=== PATIENT | female | born 1950 | race Caucasian/White ===

== ENCOUNTER 2017-03-25 23:27 | Emergency (ER) | payer MEDICARE ==
[2017-03-25] MEDS ORDERED: CLOPIDOGREL BISULFATE 300 MG TABLET PO ONE (23:43)
[2017-03-25] MEDS ORDERED: HEPARIN NA (PORCINE) 5,000 UNITS/ML 1ML VIAL IVPUSH PRN (23:45)
[2017-03-25] MEDS ORDERED: ASPIRIN 81 MG CHEWABLE TABLETS ONE (23:51)
[2017-03-25 23:52] VITALS: BMI 32.4
[2017-03-25] MEDS ORDERED: CLOPIDOGREL BISULFATE 300 MG TABLET ONE (23:52)
[2017-03-25] MEDS ORDERED: HEPARIN NA (PORCINE) 5,000 UNITS/ML 1ML VIAL ONE (23:52)
[2017-03-26] MEDS ORDERED: morphine CARPU-JECT 2 MG/1 ML DISP.SYRIN IVPUSH ONE ×2 (00:06→00:38)
[2017-03-26] MEDS ORDERED: morphine CARPU-JECT 2 MG/1 ML DISP.SYRIN ONE ×2 (00:12→00:39)
[2017-03-26 00:15] LABS: BASOPHIL 0.9 % (0-2.0); EOSINOPHIL 0.6 % (0-4.5); MCH 27.6 pg (25.7-33.7); MCHC 32.5 g/dl (32.0-36.0); MEAN CELL VOLUME 85.1 fl (80-96); MEAN PLT VOLUME 8.7 fl (7.5-11.1); PLATELET COUNT 246 K/MM3 (134-434); WHITE BLOOD COUNT 13.5 K/mm3 (4.0-10.0)
[2017-03-26] MEDS ORDERED: ASPIRIN 81 MG CHEWABLE TABLETS PO ONE (00:26)
[2017-03-26] MEDS ORDERED: HEPARIN INFUSION - 500 ML IVPB ONE (00:28)
[2017-03-26] MEDS ORDERED: TICAGRELOR 90 MG TABLET PO ONE (00:28)
[2017-03-26 00:29] LABS: INR 0.9 (0.82-1.09); PROTHROMBIN TIME (PATIENT) 9.9 SEC (9.98-11.88)
--- NOTE | 2017-03-26 00:33 | PDOC ---
History of Present Illness - General History Source: Patient Exam Limitations: No Limitations - History of Present Illness Initial Comments: 03/26/17 01:25 The patient is a 67-year-old female with a significant past medical history of IDDM, HTN, hypercholesterolemia, acid reflux, and presents to the emergency department with chest pain since 7pm tonight. She reports she woke up at 3am 3 days ago with chest pain, but it resolved. She reports the pain returned and worsened in severity tonight. She states the pain is located in the epigastric and midsternal region, non-radiating. She states she vomited tonight. She denies having had a similar episode of chest pain prior. The patient denies palpitations, shortness of breath, lower extremity swelling, headache and dizziness. The patient denies fever, chills, diarrhea and constipation. The patient denies dysuria, frequency, urgency and hematuria. Allergies: epinephrine Past Surgical History: Social History: No toxic habits reported <Jesusita Pierson - Last Filed: 03/26/17 01:25> <Daisy Rhodes - Last Filed: 03/27/17 04:58> - General Chief Complaint: Chest Pain Stated Complaint: CHEST PAIN Time Seen by Provider: 03/25/17 23:42 Past History <Jesusita Pierson - Last Filed: 03/26/17 01:25> - Past Medical History Cancer: Yes (BLADDER) Diabetes: Yes GI Disorders: Yes (REFLUX) Disorders: Yes HTN: Yes Hypercholesterolemia: Yes - Psycho/Social/Smoking Cessation Hx Anxiety: No Suicidal Ideation: No Smoking Status: No Smoking History: Never smoked Have you smoked in the past 12 months: No Number of Cigarettes Smoked Daily: 0 Hx Alcohol Use: No Drug/Substance Use Hx: No Substance Use Type: None Hx Substance Use Treatment: No <Daisy Rhodes - Last Filed: 03/27/17 04:58> - Past Medical History Allergies/Adverse Reactions: Allergies Allergy/AdvReac Type Severity Reaction Status Date / Time epinephrine Allergy Severe Verified 03/25/17 23:53 Sulfa (Sulfonamide AdvReac Verified 03/26/17 00:19 Antibiotics) Home Medications: Ambulatory Orders Esomeprazole Mag Trihydrate [Nexium] 40 mg PO DAILY 09/14/14 Gabapentin 400 mg PO BID 12/21/14 Glimepiride [Amaryl -] 4 mg PO DAILY 09/14/14 Metformin HCl [Glucophage] 1,000 mg PO BID 09/14/14 [place]-3 Acid Ethyl Esters [Lovaza -] 1,000 mg PO BID 09/14/14 Canagliflozin [Invokana] 300 mg PO DAILY 03/26/17 Review of Systems - Review of Systems Able to Perform ROS?: Yes Comments:: 03/26/17 01:25 CONSTITUTIONAL: Absent: fever, chills, diaphoresis, generalized weakness, malaise, loss of appetite HEENT: Absent: rhinorrhea, nasal congestion, throat pain, throat swelling, difficulty swallowing, mouth swelling, ear pain, eye pain, visual changes CARDIOVASCULAR: Present: (+) chest pain Absent: syncope, palpitations, irregular heart rate, lightheadedness, peripheral edema RESPIRATORY: Absent: cough, shortness of breath, dyspnea with exertion, orthopnea, wheezing, stridor, hemoptysis GASTROINTESTINAL: Present: (+) vomiting Absent: abdominal pain, abdominal distension, nausea, diarrhea, constipation, melena, hematochezia GENITOURINARY: Absent: dysuria, frequency, urgency, hesitancy, hematuria, flank pain, genital pain MUSCULOSKELETAL: Absent: myalgia, arthralgia, joint swelling SKIN: Absent: rash, itching, pallor HEMATOLOGIC/IMMUNOLOGIC: Absent: easy bleeding, easy bruising, lymphadenopathy, frequent infections ENDOCRINE: Absent: unexplained weight gain, unexplained weight loss, heat intolerance, cold intolerance NEUROLOGIC: Absent: headache, focal weakness or paresthesias, dizziness, unsteady gait, seizure, mental status changes, bladder or bowel incontinence PSYCHIATRIC: Absent: anxiety, depression, suicidal or homicidal ideation, hallucinations. <Jesusita Pierson - Last Filed: 03/26/17 01:25> *Physical Exam - Vital Signs Last Vital Signs Temp Pulse Resp BP Pulse Ox 87 18 166/90 100 03/25/17 23:51 03/25/17 23:51 03/25/17 23:51 03/25/17 23:52 - Physical Exam Comments: 03/26/17 01:25 GENERAL: Well developed, well nourished. Awake and alert. No acute distress. HEENT: Normocephalic, atraumatic. PERRLA, EOMI. No conjunctival pallor. Sclera are non- icteric. Moist mucous membranes. Oropharynx is clear. NECK: Supple. Full ROM. No JVD. Carotid pulses 2+ and symmetric, without bruits. No thyromegaly. No lymphadenopathy. CARDIOVASCULAR: Regular rate and rhythm. No murmurs, rubs, or gallops. Distal pulses are 2+ and symmetric. PULMONARY: No evidence of respiratory distress. Lungs clear to auscultation bilaterally. No wheezing, rales or rhonchi. ABDOMINAL: Soft. Non-tender. Non-distended. No rebound or guarding. No organomegaly. Normoactive bowel sounds. MUSCULOSKELETAL Normal range of motion at all joints. No bony deformities or tenderness. No CVA tenderness. EXTREMITIES: No cyanosis. No clubbing. No edema. No calf tenderness. SKIN: Warm and dry. Normal capillary refill. No rashes. No jaundice. NEUROLOGICAL: Alert, awake, appropriate. Cranial nerves 2-12 intact. No deficits to light touch and temperature in face, upper extremities and lower extremities. No motor deficits in the in face, upper extremities and lower extremities. Normoreflexic in the upper and lower extremities. Normal speech. Toes are down- going bilaterally. PSYCHIATRIC: Cooperative. Good eye contact. Appropriate mood and affect. <Jesusita Pierson - Last Filed: 03/26/17 01:25> - Vital Signs Last Vital Signs Temp Pulse Resp BP Pulse Ox 87 18 166/90 98 03/25/17 23:51 03/25/17 23:51 03/25/17 23:51 03/25/17 23:51 <Daisy Rhodes - Last Filed: 03/27/17 04:58> ED Treatment Course - LABORATORY CBC & Chemistry Diagram: 03/26/17 00:05 03/26/17 00:05 - ADDITIONAL ORDERS Additional order review: Laboratory Results 03/26/17 03/26/17 03/26/17 00:05 00:05 00:05 INR 0.90 PTT (Actin FS) 21.5 L Sodium 139 Potassium 4.1 Chloride 101 Carbon Dioxide 27 Anion Gap 11 BUN 16 D Creatinine 1.0 D Creat Clearance w eGFR 55.14 Random Glucose 234 H D Calcium 9.8 Total Bilirubin 0.3 D AST 35 D ALT 29 D Alkaline Phosphatase 93 Creatine Kinase 268 H D Creatine Kinase Index 5.2 H CK-MB (CK-2) 13.816 H Troponin I 1.15 H* Total Protein 8.1 Albumin 4.1 03/26/17 00:05 RBC 5.24 H MCV 85.1 MCHC 32.5 RDW 14.0 MPV 8.7 Neutrophils % 84.0 H D Lymphocytes % 10.9 D Monocytes % 3.6 L Eosinophils % 0.6 D Basophils % 0.9 - Medications Given in the ED: ED Medications Discontinued Medications Generic Name Dose Route Start Last Admin Trade Name Nitish PRN Reason Stop Dose Admin Aspirin 162 mg 03/26/17 00:26 03/26/17 00:35 Asa - PO 03/26/17 00:27 162 mg ONCE ONE Administration Clopidogrel Bisulfate 300 mg 03/25/17 23:43 03/26/17 00:11 Plavix - PO 03/25/17 23:44 300 mg ONCE ONE Administration Morphine Sulfate 2 mg 03/26/17 00:06 03/26/17 00:12 Morphine Injection - IVPUSH 03/26/17 00:07 2 mg ONCE ONE Administration Morphine Sulfate 2 mg 03/26/17 00:38 03/26/17 00:43 Morphine Injection - IVPUSH 03/26/17 00:39 2 mg ONCE ONE Administration <Jesusita Pierson - Last Filed: 03/26/17 01:25> - LABORATORY CBC & Chemistry Diagram: 03/26/17 00:05 03/26/17 00:05 - ADDITIONAL ORDERS Additional order review: Laboratory Results 03/26/17 03/26/17 00:05 00:05 INR 0.90 PTT (Actin FS) 21.5 L - RADIOLOGY Radiology Studies Ordered: Category Date Time Status CHEST X-RAY PORTABLE* [RAD] Stat Radiology 03/26/17 00:05 Ordered - Medications Given in the ED: ED Medications Discontinued Medications Generic Name Dose Route Start Last Admin Trade Name Freq PRN Reason Stop Dose Admin Clopidogrel Bisulfate 300 mg 03/25/17 23:43 03/26/17 00:11 Plavix - PO 03/25/17 23:44 300 mg ONCE ONE Administration Morphine Sulfate 2 mg 03/26/17 00:06 03/26/17 00:12 Morphine Injection - IVPUSH 03/26/17 00:07 2 mg ONCE ONE Administration <Daisy Rhodes - Last Filed: 03/27/17 04:58> Medical Decision Making - Critical Care Time Total Critical Care Time (minutes): 90 Critical Care Statement: The care of this patient involved high complexity decision making to prevent further life threatening deterioration of the patient 's condition and/or to evalute & treat vital organ system(s) failure or risk of failure. - Medical Decision Making 03/27/17 04:48 Pt comes with chest pain. Immediate EKG revealed change in EKG in the anterior leads with ST depression. I evaluated this as a posterior SC, given patient's presentation of worsening and progressive unremitting chest pain from 7PM onward to 11PM and worse pain at this time. Pt was immediately ordered asa and plavix. Pt was also given morphine for the pain. Heparin 5000U push requested. I also placed a call to [address] [place] [id number] HEART[address] I spoke to Dr. Kaur, fellow who was requesting posterior EKG and right sided EKG. Both were done and faxed/texted over. Ambulance arrived, but cardiology at [facility] still had not accepted the patient. At this time, EMS left the ER and asked us to call them back if they were required. After much discussion, Dr. Kaur finally agreed to the transfer to the cath lab radiological technologist; EMS called back. Pt was started on 180mg of brilinta, as per [facility] cardiology request. She was given another 2 mg of morphine, as the pain returned, and a heparin drip was started on the patient. CXR and labs done/pending; patient was sent to the [facility] senior cytogenetics laboratory director. Stable on transfer. 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 <Daisy Rhodes - Last Filed: 03/27/17 04:58> *DC/Admit/Observation/Transfer - Attestations Scribe Attestion: 03/26/17 01:26 Documentation prepared by Jesusita Pierson, acting as medical record clerk for Daisy Rhodes MD. <Jesusita Pierson - Last Filed: 03/26/17 01:25> - Transfer to Acute Care Facility Receiving Facility: [facility] Accepting Physician:: TRENT, HEAD BOOKKEEPER FELLOW <Daisy Rhodes - Last Filed: 03/27/17 04:58> Diagnosis at time of Disposition: STEMI (ST elevation myocardial infarction) - Discharge Dispostion Disposition: TRANSFER ACUTE CARE/OTHER HOSP Condition at time of disposition: Stable - Referrals Referrals: Ivory Alfredo MD [Primary Care Provider] -
[2017-03-26 00:40] LABS: ALBUMIN 4.1 g/dl (3.4-5.0); ANION GAP 11 (8-16); BILIRUBIN,TOTAL 0.3 mg/dL (0.2-1.0); CALCIUM 9.8 mg/dL (8.5-10.1); CO2 27 mmol/L (21-32); GLUCOSE,RANDOM 234 mg/dL (74-106); SGOT/AST 35 U/L (15-37); SGPT/ALT 29 U/L (12-78); TOT PROT 8.1 g/dl (6.4-8.2)
[2017-03-26] MEDS ORDERED: HEPARIN INFUSION - 500 ML IVPB SCH (00:45)
[2017-03-26 00:54] LABS: ALK PHOS 93 U/L (45-117)
[2017-03-26 00:57] LABS: TROPONIN I 1.15 ng/ml (0.00-0.05)
[2017-03-26 01:32] VITALS: BP 182/90; PULSE 84
[2017-03-26] MEDS ORDERED: ASPIRIN 81 MG CHEWABLE TABLETS PO SCH (10:00)
[2017-03-26] MEDS ORDERED: TICAGRELOR 90 MG TABLET PO SCH (10:00)
--- NOTE | 2017-03-27 10:40 | EKG ---
Test Reason : Blood Pressure : / mmHG Vent. Rate : 083 BPM Atrial Rate : 083 BPM P-R Int : 154 ms QRS Dur : 098 ms QT Int : 408 ms P-R-T Axes : 042 018 020 degrees QTc Int : 479 ms NORMAL SINUS RHYTHM POSTERIOR INFARCT , AGE UNDETERMINED LATERAL INJURY PATTERN ACUTE SD / STEMI ABNORMAL ECG WHEN COMPARED WITH ECG OF 26-MAR-2017 00:20, EVOLVING [place] Confirmed by YEIMY SUMMERS, HAILEY ([id number]) on 03/27/2017 10:40:07 AM Referred By: Confirmed By:HAILEY GAFFNEY MD
--- NOTE | 2017-03-27 10:41 | EKG ---
Test Reason : Blood Pressure : / mmHG Vent. Rate : 082 BPM Atrial Rate : 082 BPM P-R Int : 166 ms QRS Dur : 096 ms QT Int : 396 ms P-R-T Axes : 050 020 017 degrees QTc Int : 462 ms NORMAL SINUS RHYTHM ST ELEVATION CONSIDER LATERAL INJURY OR ACUTE INFARCT ACUTE VT / STEMI ABNORMAL ECG WHEN COMPARED WITH ECG OF 26-MAR-2017 00:10, QRS AXIS SHIFTED LEFT EVOLVING VT ST ELEVATION IS SEEN WITH T WAVE VARIATION Confirmed by HAILEY GAFFNEY MD ([id number]) on 03/27/2017 10:40:54 AM Referred By: Confirmed By:HAILEY GAFFNEY MD
--- NOTE | 2017-03-27 10:42 | EKG ---
Test Reason : Blood Pressure : / mmHG Vent. Rate : 086 BPM Atrial Rate : 086 BPM P-R Int : 162 ms QRS Dur : 098 ms QT Int : 386 ms P-R-T Axes : 000 157 164 degrees QTc Int : 461 ms NORMAL SINUS RHYTHM ANTEROLATERAL INFARCT (CITED ON OR BEFORE 26-MAR-2017) ABNORMAL ECG WHEN COMPARED WITH ECG OF 26-MAR-2017 00:09, SERIAL CHANGES OF ANTERIOR INFARCT PRESENT Confirmed by YEIMY SUMMERS, HAILEY ([id number]) on 03/27/2017 10:42:04 AM Referred By: Confirmed By:HAILEY GAFFNEY MD
--- NOTE | 2017-03-27 10:43 | EKG ---
Test Reason : Blood Pressure : / mmHG Vent. Rate : 084 BPM Atrial Rate : 084 BPM P-R Int : 166 ms QRS Dur : 098 ms QT Int : 386 ms P-R-T Axes : 000 166 171 degrees QTc Int : 456 ms NORMAL SINUS RHYTHM ANTEROLATERAL INFARCT , AGE UNDETERMINED CANNOT RULE OUT POSTERIOR INFARCT ABNORMAL ECG WHEN COMPARED WITH ECG OF 26-MAR-2017 00:07, EVOLVING [place] Confirmed by HAILEY GAFFNEY MD ([id number]) on 03/27/2017 10:42:47 AM Referred By: Confirmed By:HAILEY GAFFNEY MD
--- NOTE | 2017-03-27 10:44 | EKG ---
Test Reason : Blood Pressure : / mmHG Vent. Rate : 085 BPM Atrial Rate : 085 BPM P-R Int : 164 ms QRS Dur : 104 ms QT Int : 408 ms P-R-T Axes : 046 019 014 degrees QTc Int : 485 ms NORMAL SINUS RHYTHM POSSIBLE LEFT ATRIAL ENLARGEMENT ST ELEVATION CONSIDER LATERAL INJURY OR ACUTE INFARCT CANNOT RULE OUT POSTERIOR INFARCT ABNORMAL ECG WHEN COMPARED WITH ECG OF 25-MAR-2017 23:40, EVOLVING [place] Confirmed by YEIMY SUMMERS, HAILEY ([id number]) on 03/27/2017 10:43:50 AM Referred By: Confirmed By:HAILEY GAFFNEY MD
--- NOTE | 2017-03-27 10:44 | EKG ---
Test Reason : Blood Pressure : / mmHG Vent. Rate : 080 BPM Atrial Rate : 080 BPM P-R Int : 162 ms QRS Dur : 098 ms QT Int : 410 ms P-R-T Axes : 052 039 035 degrees QTc Int : 472 ms NORMAL SINUS RHYTHM POSSIBLE LEFT ATRIAL ENLARGEMENT ST ELEVATION CONSIDER LATERAL INJURY OR ACUTE INFARCT ABNORMAL ECG WHEN COMPARED WITH ECG OF 14-SEP-2014 19:32, Confirmed by HAILEY GAFFNEY MD ([id number]) on 03/27/2017 10:44:36 AM Referred By: Confirmed By:HAILEY GAFFNEY MD
== END 2017-03-26 01:00 | disposition short-term general hospital (02) ==
LOC: JER 23:27
PROC: 3E033GC Introduction of Other Therapeutic Substance into Peripheral Vein, Percutaneous Approach (ICD-10-PCS; principal; 2017-03-25)
PROC: 3E033NZ Introduction of Analgesics, Hypnotics, Sedatives into Peripheral Vein, Percutaneous Approach (ICD-10-PCS; 2017-03-25)
PROC: 3E033NZ Introduction of Analgesics, Hypnotics, Sedatives into Peripheral Vein, Percutaneous Approach (ICD-10-PCS; 2017-03-25)
DX: I21.29 ST elevation (STEMI) myocardial infarction involving other sites (principal); I10 Essential (primary) hypertension; E11.9 Type 2 diabetes mellitus without complications; Z79.84 Long term (current) use of oral hypoglycemic drugs; E78.00 Pure hypercholesterolemia, unspecified
CPT/HCPCS: 36415; 71010-TC; 80053; 82550; 82553; 84484; 85025; 85610; 85730; 93005; 93010; 96365; 96375; 99285-25; J1644

== ENCOUNTER 2018-02-19 11:20 | Emergency (ER) | payer MEDICARE ==
[2018-02-19 11:35] VITALS: BP 148/67; PULSE 85; TEMP 99.5; BMI 31.6
--- NOTE | 2018-02-19 11:40 | PDOC ---
History of Present Illness - General Chief Complaint: Ear Problem Stated Complaint: BOTH EAR PAIN Time Seen by Provider: 02/19/18 11:26 History Source: Patient Exam Limitations: No Limitations - History of Present Illness Initial Comments: 02/19/18 11:35 67 y/o female with ear pain since 1 week ago. Went to her PMD on Monday but he forgot to call in prescription for her ear infection. She was prescribed and antibiotic and ear drops. Still with some pain and occasional dizziness. No chest pain, SOB, headache, or blurred vision. OTC medications not working. Denies weakness or numbness. 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 Timing/Duration: 1 week Severity: mild Associated Symptoms: denies: chest pain, cough, headaches, shortness of breath Past History - Past Medical History Allergies/Adverse Reactions: Allergies Allergy/AdvReac Type Severity Reaction Status Date / Time epinephrine Allergy Severe Verified 02/19/18 11:21 Sulfa (Sulfonamide AdvReac Verified 02/19/18 11:21 Antibiotics) Home Medications: Ambulatory Orders Gabapentin 600 mg PO BID 09/14/14 Glimepiride [Amaryl -] 4 mg PO DAILY 09/14/14 [place]-3 Acid Ethyl Esters [Lovaza -] 1,000 mg PO BID 09/14/14 metFORMIN HCL [Glucophage] 1,000 mg PO BID 09/14/14 Canagliflozin [Invokana] 300 mg PO DAILY 03/26/17 Amoxicillin - [Amoxicillin 875mg Tablet -] 875 mg PO BID #20 tablet 02/19/18 Atorvastatin Ca [Lipitor] 80 mg PO HS 02/19/18 Clopidogrel Bisulfate [Plavix] 75 mg PO DAILY 02/19/18 Esomeprazole Magnesium [Nexium 24Hr] 40 mg PO DAILY 02/19/18 Lisinopril 5 mg PO DAILY 02/19/18 Metoprolol Succinate [Toprol Xl] 25 mg PO DAILY 02/19/18 Cancer: Yes (BLADDER) Diabetes: Yes GI Disorders: Yes (REFLUX) Disorders: Yes HTN: Yes Hypercholesterolemia: Yes - Suicide/Smoking/Psychosocial Hx Smoking Status: No Smoking History: Never smoked Have you smoked in the past 12 months: No Number of Cigarettes Smoked Daily: 0 Hx Alcohol Use: No Drug/Substance Use Hx: No Substance Use Type: None Hx Substance Use Treatment: No Review of Systems - Review of Systems Able to Perform ROS?: Yes Is the patient limited Chinese proficient: No Constitutional: No: Chills, Fever HEENTM: Yes: Ear Pain Respiratory: No: Cough, Shortness of Breath Cardiac (ROS): No: Chest Pain Neurological: No: Headache, Numbness All Other Systems: Reviewed and Negative *Physical Exam - Physical Exam General Appearance: Yes: Nourished, Appropriately Dressed. No: Apparent Distress HEENT: positive: EOMI, KIKE, Normal Voice, Symmetrical, Pharynx Normal, Sinus Tenderness (frontal sinus pressure mild). negative: Normal ENT Inspection (TM with fluid b/l, no erythema), Nasal Congestion, Rhinorrhea Neck: positive: Trachea midline, Normal Thyroid, Supple. negative: Tender, Rigid, Carotid bruit Respiratory/Chest: positive: Lungs Clear, Normal Breath Sounds. negative: Chest Tender, Respiratory Distress Cardiovascular: positive: Regular Rhythm, Regular Rate, S1, S2. negative: Edema , JVD, Murmur Vascular Pulses: Femoral (R): 4+, Femoral (L): 4+, Carotid (R): 4+, Carotid (L) : 4+, Dorsalis-Pedis (R): 4+, Doralis-Pedis (L): 4+ Gastrointestinal/Abdominal: positive: Normal Bowel Sounds, Flat, Soft. negative : Tender, Organomegaly, Pulsatile Mass Lymphatic: negative: Adenopathy, Tenderness, Other Musculoskeletal: positive: Normal Inspection. negative: CVA Tenderness Extremity: positive: Normal Capillary Refill, Normal Inspection, Normal Range of Motion Integumentary: positive: Normal Color, Dry, Warm Neurologic: positive: field mechanic II-XII NML intact, Fully Oriented, Alert, Normal Mood/ Affect, Normal Response, Motor Strength 5/5 (strength 5+/5 b/l in UE and LE, no focal deficits noted) ED Treatment Course - ADDITIONAL ORDERS Additional order review: 02/19/18 11:39 Pt appears to have a sinus infection with ETD Will treat with Amoxicillin and Sudafed If worsen return to ER *DC/Admit/Observation/Transfer Diagnosis at time of Disposition: Sinusitis Qualifiers: Sinusitis location: frontal Chronicity: acute Recurrence: not specified as recurrent Qualified Code(s): J01.10 - Acute frontal sinusitis, unspecified Eustachian tube dysfunction Qualifiers: Laterality: bilateral Qualified Code(s): H69.83 - Other specified disorders of Eustachian tube, bilateral - Discharge Dispostion Disposition: HOME Condition at time of disposition: Good Decision to Admit order: No - Referrals - Patient Instructions Printed Discharge Instructions: DI for Eustachian Tube Dysfunction-Adult, DI for Sinusitis Additional Instructions: Fluids, rest Amoxicillin 875 mg 2x/day for 10 days Sudafed 2x/day as needed If worsen return to ER - Post Discharge Activity
== END 2018-02-19 12:11 | disposition home or self-care (01) ==
LOC: FER 11:20
DX: J01.10 Acute frontal sinusitis, unspecified (principal); H69.83 Other specified disorders of Eustachian tube, bilateral; K21.9 Gastro-esophageal reflux disease without esophagitis; Z85.51 Personal history of malignant neoplasm of bladder; I10 Essential (primary) hypertension; E78.00 Pure hypercholesterolemia, unspecified
CPT/HCPCS: 99281-25

== ENCOUNTER 2018-04-18 08:36 | Day surgery (SDC) | payer MEDICARE ==
[2018-04-17 11:23] VITALS: BMI 33.3
[2018-04-18] MEDS ORDERED: DEXTROSE 5%-0.45% SALINE 1,000 ML IV SCH (11:00)
[2018-04-18] MEDS ORDERED: IBUPROFEN 800 MG/8 ML IJ IVPB SCH (11:00)
--- NOTE | 2018-04-18 11:00 | HP ---
History & Physical Update - History History: No Change - Physical Physical: No Change - Assessment Assessment: No Change - Plan Plan: No Change
[2018-04-18] MEDS ORDERED: ACETAMINOPHEN 1000 MG/100 ML VIAL (NON FORMULARY) IVPB ONE (11:01)
[2018-04-18] MEDS ORDERED: MIDAZOLAM HCL 2 MG/2 ML SINGLE DOSE VIAL ONE (11:18)
[2018-04-18] MEDS ORDERED: PROPOFOL 20 ML ONE (11:23)
[2018-04-18] MEDS ORDERED: SUCCINYLCHOLINE CHLORIDE 200 MG/10 ML VIAL ONE (11:23)
[2018-04-18] MEDS ORDERED: ceFAZolin SODIUM 1 GM VIAL IVPB ONE (11:25)
[2018-04-18] MEDS ORDERED: LIDOCAINE HCL 2% JELLY 10 ML CARTRIDGE TP ONE (11:48)
[2018-04-18] MEDS ORDERED: ONDANSETRON 4 MG/2 ML VIAL IVPUSH PRN (12:26)
[2018-04-18] MEDS ORDERED: PROMETHAZINE HCL 25 MG/1 ML VIAL IVPUSH PRN (12:26)
[2018-04-18] MEDS ORDERED: oxyCODONE HCL 5 MG TABLET PO PRN (12:26)
[2018-04-18] MEDS ORDERED: LACTATED RINGERS SOLUTION 1,000 ML IV SCH (12:30)
[2018-04-18 13:20] VITALS: TEMP 98.4
[2018-04-18 15:35] VITALS: BP 135/77; PULSE 68
--- NOTE | 2018-04-20 09:25 | OP ---
DATE OF OPERATION: 04/18/2018 SURGEON: Eduin Baird MD PREOPERATIVE DIAGNOSIS: Superficial bladder cancer. POSTOPERATIVE DIAGNOSIS: Superficial bladder cancer. PROCEDURE: Cystoscopy. ANESTHESIA: General. FINDINGS: No recurrent bladder tumors. SPECIMEN: None. ESTIMATED BLOOD LOSS: None. PREOPERATIVE INDICATIONS: The patient has a history of recurrent superficial bladder cancer. She has also received BCG treatments along the way. She comes here for cystoscopy. OPERATION: The patient was brought to the OR, placed on the table in the supine position, given general anesthesia and IV antibiotics and placed in the modified lithotomy position. The groin was prepped and draped sterilely. Cystoscopy was performed. The urethra appeared to be normal. The trigone was examined. Both UOs were seen. There was some element of interstitial cystitis which is chronic. Throughout the bladder no tumors were seen. Specifically in the area of the previous bladder tumors there was scar seen but no recurrence of the tumor. Bladder was emptied. The patient was woken up. EDUIN BAIRD M.D. [id number]
== END 2018-04-18 13:35 | disposition home or self-care (01) ==
LOC: JASU-SURG 08:36
PROVIDERS: ATTEND Urology
PROC: 0TJB8ZZ Inspection of Bladder, Via Natural or Artificial Opening Endoscopic (ICD-10-PCS; principal; 2018-04-18 10:00)
DX: Z85.51 Personal history of malignant neoplasm of bladder (principal); N30.10 Interstitial cystitis (chronic) without hematuria
CPT/HCPCS: 82962; 94760

== ENCOUNTER 2019-02-11 19:47 | Emergency (ER) | payer MEDICARE, OTHER ==
[2019-02-11 20:10] VITALS: BP 127/73; PULSE 86; TEMP 98.4; BMI 31.5
[2019-02-11] MEDS ORDERED: DIPHTH,PERTUSS(ACELL),TET 0.5 ML DISP.SYRIN IM ONE ×2 (20:35→20:43)
--- NOTE | 2019-02-12 03:04 | PDOC ---
Documentation entered by Brandon Hart SCRIBE, acting as scribe for Ester Swain MD. Ester Swain MD: This documentation has been prepared by the Hailey zuniga Matthew, SCRIBE, under my direction and personally reviewed by me in its entirety. I confirm that the documentation accurately reflects all work, treatment, procedures, and medical decision making performed by me. History of Present Illness - General Chief Complaint: Injury Stated Complaint: LEFT LEG INJURY Time Seen by Provider: 02/11/19 20:00 History Source: Patient Exam Limitations: No Limitations - History of Present Illness Initial Comments: 02/11/19 21:08 Patient is a 68 year old female with a significant past medical history of Diabetes, Cardiac stent, who presents to the ED with laceration that occured 3 hours prior to ED arrival. Patient reports moving her bed when she accidently cut her left lower leg, causing immediate bleeding. She reports applying pressure bandages, but decided to come into the ED for further evaluation as well as for a tetanus shot. Denies chest pain, sob. Denies nausea, vomiting. Denies dysuria, hematuria. Denies constipation, diarrhea. Denies contact with sick individuals, out of state travelling. Denies any other symptoms. Allergies: epinephrine, Sulfa, ciprofloxacin Social history: No smoking. No illicit drugs. No alcohol. Surgical history: PMD: Dr. Hogan Past History - Past Medical History Allergies/Adverse Reactions: Allergies Allergy/AdvReac Type Severity Reaction Status Date / Time ciprofloxacin [From Cipro] Allergy Severe Verified 04/18/18 09:46 epinephrine Allergy Severe Verified 04/18/18 09:44 Sulfa (Sulfonamide Allergy Severe Verified 04/18/18 09:44 Antibiotics) Home Medications: Ambulatory Orders Gabapentin 600 mg PO DAILY 09/14/14 Glimepiride [Amaryl -] 4 mg PO DAILY 09/14/14 Lambert-3 Acid Ethyl Esters [Lovaza -] 2,000 mg PO BID 09/14/14 metFORMIN HCL [Glucophage] 1,000 mg PO BID 09/14/14 Clopidogrel Bisulfate [Plavix] 75 mg PO DAILY 02/19/18 Esomeprazole Magnesium [Nexium 24Hr] 40 mg PO DAILY 02/19/18 Metoprolol Succinate [Toprol Xl] 25 mg PO DAILY 02/19/18 Gabapentin [Neurontin] 300 mg PO HS 02/11/19 Ibuprofen/Famotidine [Duexis 800-26.6 mg Tablet] 1 each PO BID 02/11/19 Lisinopril 10 mg PO DAILY 02/11/19 Rosuvastatin [Crestor -] 10 mg PO Q48H 02/11/19 Cancer: Yes (BLADDER) Cardiac Disorders: Yes (CARDIAC STENT 04/10) COPD: No Diabetes: Yes GI Disorders: Yes (REFLUX) Disorders: Yes HTN: Yes Hypercholesterolemia: Yes - Surgical History Cardiac Surgery: Yes (CARDIAC STENT 04/10) - Suicide/Smoking/Psychosocial Hx Smoking Status: No Smoking History: Never smoked Have you smoked in the past 12 months: No Number of Cigarettes Smoked Daily: 0 If you are a former smoker, when did you quit?: 45 YRS AGO Hx Alcohol Use: No Drug/Substance Use Hx: No Substance Use Type: None Hx Substance Use Treatment: No Review of Systems - Review of Systems Able to Perform ROS?: Yes Comments:: 02/11/19 21:09 GENERAL/CONSTITUTIONAL: No fever or chills. No weakness. HEAD, EYES, EARS, NOSE AND THROAT: No change in vision. No ear pain or discharge. No sore throat. CARDIOVASCULAR: No chest pain or shortness of breath. RESPIRATORY: No cough, wheezing, or hemoptysis. GASTROINTESTINAL: No nausea, vomiting, diarrhea or constipation. GENITOURINARY: No dysuria, frequency, or change in urination. MUSCULOSKELETAL: No joint or muscle swelling or pain. No neck or back pain. SKIN: +Left lower NEUROLOGIC: No headache, vertigo, loss of consciousness, or change in strength/ sensation. ENDOCRINE: No increased thirst. No abnormal weight change. HEMATOLOGIC/LYMPHATIC: No anemia, easy bleeding, or history of blood clots. ALLERGIC/IMMUNOLOGIC: No hives or skin allergy. *Physical Exam - Vital Signs Last Vital Signs Temp Pulse Resp BP Pulse Ox 98.4 F 86 18 127/73 97 02/11/19 19:49 02/11/19 19:49 02/11/19 19:49 02/11/19 19:49 02/11/19 19:49 - Physical Exam Comments: 02/11/19 21:09 GENERAL: Awake, alert, and fully oriented, in no acute distress HEAD: No signs of trauma EYES: PERRLA, EOMI, sclera anicteric, conjunctiva clear ENT: Auricles normal inspection, hearing grossly normal, nares patent, oropharynx clear without exudates. Moist mucosa NECK: Normal ROM, supple, no lymphadenopathy, JVD, or masses LUNGS: Breath sounds equal, clear to auscultation bilaterally. No wheezes, and no crackles HEART: Regular rate and rhythm, normal S1 and S2, no murmurs, rubs or gallops ABDOMEN: Soft, nontender, normoactive bowel sounds. No guarding, no rebound. No masses EXTREMITIES: Normal range of motion, no edema. No clubbing or cyanosis. No cords, erythema, or tenderness NEUROLOGICAL: Cranial nerves II through XII grossly intact. Normal speech, normal gait SKIN: Warm, Dry, normal turgor, no rashes or lesions noted. *DC/Admit/Observation/Transfer Diagnosis at time of Disposition: Laceration of lower leg Qualifiers: Encounter type: initial encounter Laterality: left Qualified Code(s): S81.812A - Laceration without foreign body, left lower leg, initial encounter - Discharge Dispostion Condition at time of disposition: Good - Referrals Referrals: Husam Hogan MD [Primary Care Provider] - - Patient Instructions Printed Discharge Instructions: DI for Minor Laceration Additional Instructions: Leave current dressing intact for 48 hours After 2 days, Band-Aid/bacitracin ointment to wound as needed Return to ER or see your doctor if area becomes painful/swollen/red Followup with your doctor within 5 days - Post Discharge Activity - Attestations Scribe Attestion: 02/11/19 20:21 Documentation prepared by Brandon Hart, acting as medical insurance coder for Ester Swain MD.
== END 2019-02-11 20:49 | disposition home or self-care (01) ==
LOC: FER 19:47
PROC: 3E0234Z Introduction of Serum, Toxoid and Vaccine into Muscle, Percutaneous Approach (ICD-10-PCS; principal; 2019-02-11)
DX: S81.812A Laceration without foreign body, left lower leg, initial encounter (principal); W26.9XXA Contact with unspecified sharp object(s), initial encounter; Y93.89 Activity, other specified; Y92.003 Bedroom of unspecified non-institutional (private) residence as the place of occurrence of the external cause; E11.9 Type 2 diabetes mellitus without complications; Z95.5 Presence of coronary angioplasty implant and graft; Z87.891 Personal history of nicotine dependence; Z85.51 Personal history of malignant neoplasm of bladder; K21.9 Gastro-esophageal reflux disease without esophagitis
CPT/HCPCS: 90471; 90715; 99282-25

== ENCOUNTER 2023-05-12 12:55 | Emergency (ER) | payer MEDICARE ==
[2023-05-12] MEDS ORDERED: ONDANSETRON 4 MG/2 ML VIAL IVPB ONE (13:24)
[2023-05-12] MEDS ORDERED: FAMOTIDINE 20 MG/50 ML IVPB 20 MG in PREMIX 50 IVPB ONE (13:24)
[2023-05-12] MEDS ORDERED: MAG HYDROX/AL HYDROX/SIMETH -MYLANTA- ORAL SUSPENSION PO ONE (13:24)
[2023-05-12] MEDS ORDERED: SODIUM CHLORIDE 0.9% 500 ML INFUS.BAG IV ONE (13:24)
[2023-05-12 13:30] VITALS: BP 130/74; PULSE 90; RESP 16; TEMP 98; BMI 31.4
[2023-05-12] MEDS ORDERED: ONDANSETRON 4 MG/2 ML VIAL ONE (13:38)
[2023-05-12] MEDS ORDERED: FAMOTIDINE 20 MG/50 ML IVPB 20 MG/50 ML MG IVPB ONE (13:38)
[2023-05-12] MEDS ORDERED: MAG HYDROX/AL HYDROX/SIMETH 30 ML UNIT-DOSE CUP ONE (13:39)
[2023-05-12 14:22] LABS: HEMATOCRIT 33.2 % (32.4-45.2); HEMOGLOBIN 10.8 G/dL (10.7-15.3); MCH 26.1 pg (25.7-33.7); MCHC 32.6 g/dl (32.0-36.0); MEAN CELL VOLUME 80.1 fl (80-96); MEAN PLT VOLUME 8.3 fl (7.5-11.1); PLATELET COUNT 297.6 10^3/uL (134-434); RBC 4.15 10^6/uL (3.60-5.2); RDW 17.1 % (11.6-15.6); WHITE BLOOD COUNT 6.1 10^3/uL (4.0-10.8)
[2023-05-12 14:30] LABS: ALBUMIN 4.1 g/dl (3.4-5.0); BLOOD UREA NITROGEN 17.9 mg/dl (7-18); CALCIUM 9.9 mg/dl (8.5-10.1); POTASSIUM 4.2 mmol/L (3.5-5.1); SGOT/AST 16.8 U/L (15-37); SGPT/ALT 11.9 U/L (7-52)
[2023-05-12 14:41] LABS: PLATELET ESTIMATE ADEQUATE
[2023-05-12 15:34] LABS: BILIRUBIN,TOTAL 0.4 mg/dL (0.2-1)
== END 2023-05-12 15:59 | disposition home or self-care (01) ==
LOC: FER 12:55
PROC: 3E033GC Introduction of Other Therapeutic Substance into Peripheral Vein, Percutaneous Approach (ICD-10-PCS; principal; 2023-05-12)
PROC: 3E033GC Introduction of Other Therapeutic Substance into Peripheral Vein, Percutaneous Approach (ICD-10-PCS; 2023-05-12)
DX: R11.2 Nausea with vomiting, unspecified (principal); R19.7 Diarrhea, unspecified
CPT/HCPCS: 36415; 80053; 81003; 83690; 84484; 85027; 93005; 96365; 96375; 99284-25